=== PATIENT | male | born 2000 | race Asian ===

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

== ENCOUNTER 2020-02-15 01:13 | Emergency (ER) | payer MEDICAID ==
[~2020-02-15] VITALS: Ht 172.7 cm; Wt 72.7 kg
[2020-02-15 02:49] VITALS: BP 128/70
== END 2020-02-15 03:11 | disposition home or self-care (01) ==
LOC: EMS 01:13
DX: S62.314A Displaced fracture of base of fourth metacarpal bone, right hand, initial encounter for closed fracture (principal); S62.316A Displaced fracture of base of fifth metacarpal bone, right hand, initial encounter for closed fracture; Z91.013 Allergy to seafood; W22.01XA Walked into wall, initial encounter; Y93.89 Activity, other specified; Y92.89 Other specified places as the place of occurrence of the external cause; Y99.8 Other external cause status